=== PATIENT | male | born 1965 | race Caucasian/White ===

== ENCOUNTER 2025-05-16 10:01 | Inpatient (IN) | payer OTHER ==
[2025-05-16 10:34] VITALS: BMI 31.1
[2025-05-16] MEDS ORDERED: BENZONATATE 200 MG CAPSULE PO PRN (11:09)
[2025-05-16] MEDS ORDERED: BISMUTH SUBSALICYLATE 524 MG/30 ML PO PRN (11:09)
[2025-05-16] MEDS ORDERED: DICYCLOMINE HCL 10 MG CAPSULE PO PRN (11:09)
[2025-05-16] MEDS ORDERED: ONDANSETRON *ODT* 4 MG TABLET SL PRN (11:09)
[2025-05-16] MEDS ORDERED: POLYETHYLENE GLYCOL (HEALTHYLAX) 3350 17 GM PACKET PO PRN (11:09)
[2025-05-16] MEDS ORDERED: guaiFENesin 600 MG TABLET.ER (FP) PO PRN (11:09)
[2025-05-16] MEDS ORDERED: LOPERAMIDE HCL 2 MG CAPSULE PO PRN (11:09)
[2025-05-16] MEDS ORDERED: NALOXONE (NARCAN) HCL 4 MG/0.1 ML SPRAY NS PRN (11:09)
[2025-05-16] MEDS ORDERED: ACETAMINOPHEN 325 MG TABLET (FP) PO PRN (11:09)
[2025-05-16] MEDS ORDERED: MAG HYDROX/AL HYDROX/SIMETH 30 ML UNIT-DOSE CUP PO PRN (11:09)
[2025-05-16] MEDS ORDERED: MAGNESIUM HYDROX 2400MG/30ML ORAL SUSPENSION 30 ML CUP PO PRN (11:09)
[2025-05-16] MEDS ORDERED: IBUPROFEN 400 MG TABLET (FP) PO PRN (11:09)
[2025-05-16] MEDS ORDERED: PRENATAL VITAMINS W/ FOLIC ACID TABLET (FP) PO ONE (11:53)
[2025-05-16] MEDS ORDERED: NICOTINE 14 MG/24 HOURS TOPICAL PATCH TD ONE (11:53)
[2025-05-16] MEDS: NICOTINE 14 MG/24 HOURS TOPICAL PATCH TD SCH (11:55)
[2025-05-16] MEDS: PRENATAL VITAMINS W/ FOLIC ACID TABLET (FP) PO SCH (11:55)
[2025-05-16] MEDS: hydrOXYzine PAMOATE 25 MG CAPSULE (FP) PO PRN (13:14)
[2025-05-16] MEDS: METHOCARBAMOL 500 MG TABLET PO PRN (13:14)
[2025-05-16] MEDS: MELATONIN 5 MG TABLETS PO SCH (22:54)
[2025-05-16] MEDS: THIAMINE 100 MG TABLET PO SCH (22:57)
[2025-05-17] MEDS: amLODIPine BESYLATE 5 MG TABLET (FP) PO SCH (10:27)
[2025-05-17 11:11] LABS: MCHC 31.0 g/dl (32.3-36.5); MEAN CELL VOLUME 93.6 fl (79.0-92.2); MEAN PLT VOLUME 10.5 fl (9.4-12.4); RDW 14.0 % (12.2-16.1)
[2025-05-17 11:50] LABS: GLUCOSE,RANDOM 106.0 mg/dL (74-106)
[2025-05-17 11:51] LABS: TOT PROT 7.0 g/dl (6.4-8.2)
[2025-05-17 11:52] LABS: CO2 26.0 mmol/L (21-32)
[2025-05-17 11:53] LABS: ALK PHOS 110.0 U/L (40-150)
[2025-05-17 11:56] LABS: SGOT/AST 19.0 U/L (5-34); SGPT/ALT 15.0 U/L (0-55)
[2025-05-17 12:16] LABS: CREATININE 1.11 mg/dL (0.55-1.3)
[2025-05-17] MEDS: PNEUMOC 20-VAL CONJ-DIP CRM/PF 0.5 ML SYRINGE IM ONE (13:01)
[2025-05-18] MEDS: MIRTAZAPINE 15 MG TABLET (FP) PO SCH (22:15)
[2025-05-18] MEDS: IBUPROFEN 600 MG TABLET (FP) PO PRN (22:17)
[2025-05-19] MEDS: ACAMPROSATE CALCIUM 333 MG TABLET.DR PO SCH (22:30)
[2025-05-21] MEDS: BENZOCAINE/MENTHOL (CHLORASEPTIC ) LOZENGE MM PRN (22:46)
[2025-05-22] MEDS: AMOXICILLIN 500 MG CAPSULE (FP) PO SCH (10:58)
[2025-05-22 12:43] VITALS: BP 137/85; PULSE 84; RESP 17; TEMP 98.2
== END 2025-05-22 13:56 | disposition other institution (70) | DRG 773 ==
LOC: YASAS 10:01 → Y6N 12:25
PROVIDERS: ADMIT Allergy & Immunology; ATTEND Counselor Addiction (Substance Use Disorder)
PROC: HZ2ZZZZ Detoxification Services for Substance Abuse Treatment (ICD-10-PCS; principal; 2025-05-16)
DX: F10.230 Alcohol dependence with withdrawal, uncomplicated (principal); F11.20 Opioid dependence, uncomplicated; F14.20 Cocaine dependence, uncomplicated; F17.210 Nicotine dependence, cigarettes, uncomplicated; F19.24 Other psychoactive substance dependence with psychoactive substance-induced mood disorder; I10 Essential (primary) hypertension; J06.9 Acute upper respiratory infection, unspecified
CPT/HCPCS: 36415; 80053; 80307; 82140; 85027; 86780; 90677; 93005; 93010

== ENCOUNTER 2025-07-22 09:38 | Inpatient (IN) | payer OTHER ==
[2025-07-22 10:33] VITALS: BMI 33.9
[2025-07-22] MEDS ORDERED: NALOXONE (NARCAN) HCL 4 MG/0.1 ML SPRAY NS PRN (10:54)
[2025-07-22] MEDS ORDERED: LOPERAMIDE HCL 2 MG CAPSULE PO PRN (10:54)
[2025-07-22] MEDS ORDERED: IBUPROFEN 400 MG TABLET (FP) PO PRN (10:54)
[2025-07-22] MEDS ORDERED: ONDANSETRON *ODT* 4 MG TABLET SL PRN (10:54)
[2025-07-22] MEDS ORDERED: POLYETHYLENE GLYCOL (HEALTHYLAX) 3350 17 GM PACKET PO PRN (10:54)
[2025-07-22] MEDS ORDERED: hydrOXYzine PAMOATE 25 MG CAPSULE (FP) PO PRN (10:54)
[2025-07-22] MEDS ORDERED: BENZOCAINE/MENTHOL (CHLORASEPTIC ) LOZENGE MM PRN (10:54)
[2025-07-22] MEDS ORDERED: METHOCARBAMOL 500 MG TABLET PO PRN (10:54)
[2025-07-22] MEDS ORDERED: DICYCLOMINE HCL 10 MG CAPSULE PO PRN (10:54)
[2025-07-22] MEDS ORDERED: MAGNESIUM HYDROX 2400MG/30ML ORAL SUSPENSION 30 ML CUP PO PRN (10:54)
[2025-07-22] MEDS ORDERED: guaiFENesin 600 MG TABLET.ER (FP) PO PRN (10:54)
[2025-07-22] MEDS ORDERED: MAG HYDROX/AL HYDROX/SIMETH 30 ML UNIT-DOSE CUP PO PRN (10:54)
[2025-07-22] MEDS ORDERED: BISMUTH SUBSALICYLATE 524 MG/30 ML PO PRN (10:54)
[2025-07-22] MEDS ORDERED: BENZONATATE 200 MG CAPSULE PO PRN (10:54)
[2025-07-22] MEDS ORDERED: PRENATAL VITAMINS W/ FOLIC ACID TABLET (FP) PO ONE (11:56)
[2025-07-22] MEDS: PRENATAL VITAMINS W/ FOLIC ACID TABLET (FP) PO SCH (11:57)
[2025-07-22] MEDS: ACAMPROSATE CALCIUM 333 MG TABLET.DR PO SCH (13:42)
[2025-07-22] MEDS ORDERED: ACAMPROSATE CALCIUM 333 MG TABLET.DR PO SCH (14:00)
[2025-07-22] MEDS: IBUPROFEN 600 MG TABLET (FP) PO PRN (17:16)
[2025-07-22] MEDS: BACLOFEN 10 MG TABLET (FP) PO SCH (22:22)
[2025-07-22] MEDS: THIAMINE 100 MG TABLET PO SCH (22:22)
[2025-07-22] MEDS: MIRTAZAPINE 15 MG TABLET (FP) PO SCH (22:22)
[2025-07-22] MEDS: MELATONIN 5 MG TABLETS PO SCH (22:23)
[2025-07-22] MEDS: ACETAMINOPHEN 325 MG TABLET (FP) PO PRN (22:24)
[2025-07-23] MEDS: TAMSULOSIN HCL 0.4 MG CAP PO SCH (08:23)
[2025-07-23] MEDS: amLODIPine BESYLATE 10 MG TABLET (FP) PO SCH (10:14)
[2025-07-23] MEDS: NICOTINE 14 MG/24 HOURS TOPICAL PATCH TD SCH (10:19)
[2025-07-23 12:35] LABS: MCHC 30.9 g/dl (32.3-36.5); MEAN CELL VOLUME 90.8 fl (79.0-92.2); MEAN PLT VOLUME 9.9 fl (9.4-12.4); RDW 14.9 % (12.2-16.1)
[2025-07-23 12:52] LABS: GLUCOSE,RANDOM 106.0 mg/dL (74-106); TOT PROT 6.6 g/dl (6.4-8.2)
[2025-07-23 12:53] LABS: CO2 31.0 mmol/L (21-32)
[2025-07-23 12:57] LABS: SGPT/ALT 41.0 U/L (0-55)
[2025-07-23 12:58] LABS: CREATININE 0.92 mg/dL (0.55-1.3); SGOT/AST 72.0 U/L (5-34)
[2025-07-23 13:04] LABS: ALK PHOS 122.0 U/L (40-150)
[2025-07-26] MEDS: FLUTICASONE PROP 0.05% 16 GM NASAL SPRAY NS SCH (11:56)
[2025-07-27 08:37] VITALS: BP 126/70; PULSE 89; RESP 19; TEMP 97.3
== END 2025-07-27 09:43 | disposition home or self-care (01) | DRG 773 ==
LOC: YASAS 09:38 → Y3N 11:28
PROVIDERS: ADMIT Allergy & Immunology; ATTEND Student in an Organized Health Care Education/Training Program
PROC: HZ2ZZZZ Detoxification Services for Substance Abuse Treatment (ICD-10-PCS; principal; 2025-07-22)
DX: F10.230 Alcohol dependence with withdrawal, uncomplicated (principal); F11.20 Opioid dependence, uncomplicated; F14.20 Cocaine dependence, uncomplicated; F17.210 Nicotine dependence, cigarettes, uncomplicated; F19.24 Other psychoactive substance dependence with psychoactive substance-induced mood disorder; F39 Unspecified mood [affective] disorder; I10 Essential (primary) hypertension; M17.10 Unilateral primary osteoarthritis, unspecified knee; N40.0 Benign prostatic hyperplasia without lower urinary tract symptoms; Z99.89 Dependence on other enabling machines and devices; Z59.01 Sheltered homelessness
CPT/HCPCS: 36415; 80053; 80305; 80307; 85027; 86780; 87070; 87637-QW; 93005; 93010; J0475